=== PATIENT | male | born 1995 | race Caucasian/White ===

== ENCOUNTER 2017-04-15 04:43 | Emergency (ER) | payer OTHER ==
[~2017-04-15] VITALS: Ht 190.5 cm; Wt 73.0 kg
[2017-04-15 06:25] LABS: ANION GAP 17 (6-22 (CALC)); BUN 19 mg/dL (9-20); BUN/CREATININE RATIO 20 (12-20 (CALC)); CALCIUM 9.8 mg/dL (8.4-10.2); CARBON DIOXIDE 26 mmol/l (22-30); CHLORIDE 103 mmol/l (95-108); CREATININE 0.9 mg/dL (0.7-1.3); GFR > 60 ML/MIN (>=60 (CALC)); GFR FOR AFR.AMER. > 60 ML/MIN (>=60 (CALC)); GLUCOSE 103 mg/dL (75-110); POTASSIUM 3.7 mmol/l (3.5-5.1); SODIUM 142 mmol/l (137-146)
[2017-04-15 06:37] VITALS: BP 126/68
== END 2017-04-15 06:36 | disposition home or self-care (01) | DRG 310 ==
LOC: ED 04:43
PROVIDERS: Emergency Medicine
DX: R00.2 Palpitations (principal); F15.90 Other stimulant use, unspecified, uncomplicated